=== PATIENT | male | born 1975 | race Caucasian/White ===

== ENCOUNTER 2020-04-25 04:16 | Inpatient (IN) | payer BC, OTHER ==
[~2020-04-25] VITALS: Ht 167 cm; Wt 79.2 kg
[2020-04-25] VITALS (8 sets, daily range): BP systolic 100–121; BP diastolic 66–93
--- OUTSIDE RECORDS SUMMARY | 2020-04-25 04:23 | XMS REPORT | Continuity of Care Document ---
Author Organization Unknown Address Unknown Phone Unavailable Allergies There is no data. Medications There is no data. Problems There is no data. Procedures There is no data. Results There is no data. Encounters ACCT No. Visit Date/Time Discharge Status Pt. Type Provider Facility Loc./Unit Complaint [id number] 04/18/2020 14:40:00 04/18/2020 23:59:5 9 [facility]
[2020-04-25] MEDS ORDERED: OSEL75CA15 (04:38)
[2020-04-25] MEDS ORDERED: ALBUTEROL (04:38)
[2020-04-25] MEDS ORDERED: LACTATED RINGERS 1,000 ML IV STA (05:05)
[2020-04-25 05:22] LABS: BASOPHILS % (AUTO) 0 % (0-10); EOSINOPHILS % (AUTO) 0 % (0-10); HEMATOCRIT 38 % (40-54); HEMOGLOBIN 12.6 G/DL (13.3-17.7); LYMPHOCYTES # (AUTO) 1.2 X 10^3 (1.0-4.0); LYMPHOCYTES % (AUTO) 10 % (12-44); MEAN CORPUSCULAR HEMOGLOBIN 24 PG (25-34); MEAN CORPUSCULAR HGB CONC 34 G/DL (32-36); MEAN CORPUSCULAR VOLUME 71 FL (80-99); MEAN PLATELET VOLUME 9.7 FL (7.4-10.4); MONOCYTES # (AUTO) 0.4 X 10^3 (0.0-1.0); MONOCYTES % (AUTO) 3 % (0-12); NEUTROPHILS # (AUTO) 10.3 X 10^3 (1.8-7.8); NEUTROPHILS % (AUTO) 86 % (42-75); PLATELET COUNT 333 10^3/uL (130-400); RED CELL DISTRIBUTION WIDTH 13.9 % (10.0-14.5); WHITE BLOOD COUNT 11.9 10^3/uL (4.3-11.0)
[2020-04-25 05:23] LABS: BILIRUBIN,URINE NEGATIVE (NEGATIVE); CLARITY,URINE CLEAR; COLOR,URINE YELLOW; GLUCOSE, URINE (UA) NEGATIVE (NEGATIVE); KETONES,URINE 1+ (NEGATIVE); LEUKOCYTE ESTERASE ,URINE NEGATIVE (NEGATIVE); NITRITE,URINE NEGATIVE (NEGATIVE); PROTEIN,URINE 2+ (NEGATIVE)
[2020-04-25 05:37] LABS: BACTERIA,URINE NEGATIVE /HPF; SQUAMOUS EPITHELIAL CELL,UR 0-2 /HPF
[2020-04-25 05:39] LABS: PROTHROMBIN TIME PATIENT 13.8 SEC (12.2-14.7)
--- NOTE | 2020-04-25 05:41 | ED Respiratory ---
General Chief Complaint: Respiratory Problems Stated Complaint: FEVER,SOB Nursing Triage Note: SOA X3 DAYS REPORTS TESTING POSITIVE FOR COVID 04/14/2020. REPORTS WORKS AT [employer]. Source: patient Exam Limitations: no limitations History of Present Illness Date Seen by Provider: Apr 25, 2020 Time Seen by Provider: 04:50 Initial Comments Patient with known history of COVID-19 infection as diagnosed on April 14 the [facility] presents with increasing shortness of air over the last 2 days. His also is COVID-19 positive and works at [employer]. Denies nausea, vomiting or diarrhea. Reports drinking okay but eating less. Overall doesn't feel well and is quite short of breath. He is still reporting fevers. Timing/Duration: getting worse, other (10 days) Severity: moderate Prior Episodes/Possible Cause: no prior episodes Modifying Factors: Worse With Activity; Improves With Oxygen, Improves With Rest Associated Symptoms: No chest pain/soreness; cough, fever/chills, muscle aches, nasal congestion, shortness of breath; No wheezing Allergies and Home Medications Allergies Coded Allergies: No Known Drug Allergies (Unverified , 12/18/15) Patient Home Medication List Home Medication List Reviewed: Yes Review of Systems Review of Systems Constitutional: see HPI, chills, fever EENTM: see HPI, nose congestion; No throat pain Respiratory: cough, short of breath Cardiovascular: no symptoms reported Gastrointestinal: No abdominal pain; loss of appetite; No nausea, No vomiting Genitourinary: no symptoms reported Musculoskeletal: no symptoms reported Skin: no symptoms reported All Other Systems Reviewed Negative Unless Noted: Yes Past Eyrmmis-Qrjdqa-Xuznfi Hx Past Med/Social Hx: Reviewed Nursing Past Med/Soc Hx Patient Social History Alcohol Use: Occasionally Uses Alcohol Beverage of Choice: Beer Recreational Drug Use: No Smoking Status: Never a Smoker 2nd Hand Smoke Exposure: No Recent Foreign Travel: No Contact w/Someone Who Travel: No Recent Infectious Disease Expo: No Recent Hopitalizations: No Physical Abuse: No Sexual Abuse: No Mistreated: No Fear: No Immunizations Up To Date Tetanus Booster (TDap): Unknown Seasonal Allergies Seasonal Allergies: No Past Medical History Surgeries: No Respiratory: No Cardiac: No Neurological: No Reproductive Disorders: No Sexually Transmitted Disease: No Genitourinary: No Gastrointestinal: No Musculoskeletal: No Endocrine: No HEENT: No Cancer: No Psychosocial: No Integumentary: No Blood Disorders: No Family Medical History Reviewed Nursing Family Hx No Pertinent Family Hx Physical Exam Vital Signs - First Documented 04/25/20 04:30 Temp 37.1 Pulse 96 Resp 20 B/P (MAP) 107/68 (81) Pulse Ox 97 O2 Delivery Nasal Cannula O2 Flow Rate 2.00 Capillary Refill : Less Than 3 Seconds Height: 5'7" Weight: 180lbs. oz. 81.380129zo; 28.00 BMI Method:Stated General Appearance: WD/WN, no apparent distress HEENT: PERRL/EOMI, pharynx normal Neck: full range of motion, supple Respiratory: No wheezing; other (course throughout) Cardiovascular: no murmur, tachycardia Gastrointestinal: non tender, soft Extremities: non-tender, normal inspection Neurologic/Psychiatric: alert, oriented x 3 Skin: normal color, warm/dry Focused Exam Lactate Level 04/25/20 05:00: Lactic Acid Level 0.91 Lactic Acid Level Laboratory Tests Test 04/25/20 05:00 Lactic Acid Level 0.91 MMOL/L (0.50-2.00) Progress/Results/Core Measures Suspected Sepsis Recent Fever Within 48 Hours: Yes Infection Criteria Present: Documented Infection New/Unexplained Altered Menta: No Sepsis Screen: Possible Sepsis Risk SIRS Temperature: Pulse: 96 Respiratory Rate: 20 Laboratory Tests 04/25/20 05:00: White Blood Count 11.9H Blood Pressure 107 /68 Mean: 81 04/25/20 05:00: Lactic Acid Level 0.91 Laboratory Tests 04/25/20 05:00: Creatinine 0.69, INR Comment 1.0, Platelet Count 333, Total Bilirubin 0.3 Results/Orders Lab Results Laboratory Tests Test 04/25/20 05:00 04/25/20 05:09 Range/Units White Blood Count 11.9 H 4.3-11.0 10^3/uL Red Blood Count 5.32 4.35-5.85 10^6/uL Hemoglobin 12.6 L 13.3-17.7 G/DL Hematocrit 38 L 40-54 % Mean Corpuscular Volume 71 L 80-99 FL Mean Corpuscular Hemoglobin 24 L 25-34 PG Mean Corpuscular Hemoglobin Concent 34 32-36 G/DL Red Cell Distribution Width 13.9 10.0-14.5 % Platelet Count 333 130-400 10^3/uL Mean Platelet Volume 9.7 7.4-10.4 FL Neutrophils (%) (Auto) 86 H 42-75 % Lymphocytes (%) (Auto) 10 L 12-44 % Monocytes (%) (Auto) 3 0-12 % Eosinophils (%) (Auto) 0 0-10 % Basophils (%) (Auto) 0 0-10 % Neutrophils # (Auto) 10.3 H 1.8-7.8 X 10^3 Lymphocytes # (Auto) 1.2 1.0-4.0 X 10^3 Monocytes # (Auto) 0.4 0.0-1.0 X 10^3 Eosinophils # (Auto) 0.0 0.0-0.3 10^3/uL Basophils # (Auto) 0.0 0.0-0.1 10^3/uL Prothrombin Time 13.8 12.2-14.7 SEC INR Comment 1.0 0.8-1.4 Activated Partial Thromboplast Time 35 24-35 SEC Sodium Level 136 135-145 MMOL/L Potassium Level 3.0 L 3.6-5.0 MMOL/L Chloride Level 103 98-107 MMOL/L Carbon Dioxide Level 21 21-32 MMOL/L Anion Gap 12 5-14 MMOL/L Blood Urea Nitrogen 14 7-18 MG/DL Creatinine 0.69 0.60-1.30 MG/DL Estimat Glomerular Filtration Rate > 60 BUN/Creatinine Ratio 20 Glucose Level 134 H 70-105 MG/DL Lactic Acid Level 0.91 0.50-2.00 MMOL/L Calcium Level 8.6 8.5-10.1 MG/DL Corrected Calcium 8.9 8.5-10.1 MG/DL Total Bilirubin 0.3 0.1-1.0 MG/DL Aspartate Amino Transf (AST/SGOT) 36 H 5-34 U/L Alanine Aminotransferase (ALT/SGPT) 36 0-55 U/L Alkaline Phosphatase 65 40-136 U/L Total Protein 7.4 6.4-8.2 GM/DL Albumin 3.6 3.2-4.5 GM/DL Urine Color YELLOW Urine Clarity CLEAR Urine pH 6.0 5-9 Urine Specific [place] 1.025 H 1.016-1.022 Urine Protein 2+ H NEGATIVE Urine Glucose (UA) NEGATIVE NEGATIVE Urine Ketones 1+ H NEGATIVE Urine Nitrite NEGATIVE NEGATIVE Urine Bilirubin NEGATIVE NEGATIVE Urine Urobilinogen 0.2 < = 1.0 MG/DL Urine Leukocyte Esterase NEGATIVE NEGATIVE Urine RBC (Auto) NEGATIVE NEGATIVE Urine RBC NONE /HPF Urine WBC NONE /HPF Urine Squamous Epithelial Cells 0-2 /HPF Urine Crystals NONE /LPF Urine Bacteria NEGATIVE /HPF Urine Casts NONE /LPF Urine Mucus MODERATE H /LPF Urine Culture Indicated NO My Orders Orders - CHELITA PORTILLO MD Cbc With Automated Diff (04/25/20 05:03) Comprehensive Metabolic Panel (04/25/20 05:03) Blood Culture (04/25/20 05:03) Sputum Culture (04/25/20 05:03) Urinalysis (04/25/20 05:03) Urine Culture (04/25/20 05:03) Protime With Inr (04/25/20 05:03) Partial Thromboplastin Time (04/25/20 05:03) Chest 1 View, Ap/Pa Only (04/25/20 05:03) Ed Iv/Invasive Line Start (04/25/20 05:03) Ed Iv/Invasive Line Start (04/25/20 05:03) Vital Signs Adult Sepsis Patie Q15M (04/25/20 05:03) O2 (04/25/20 05:03) Remove Rings In Anticipation O (04/25/20 05:03) Lactic Acid Analyzer (04/25/20 05:03) Lactated Ringers (Lr 1000 Ml Iv Solution (04/25/20 05:05) Vital Signs/I&O 04/25/20 04/25/20 04:30 04:30 Temp 37.1 Pulse 96 Resp 20 B/P (MAP) 107/68 (81) Pulse Ox 97 96 O2 Delivery Nasal Cannula Nasal Cannula O2 Flow Rate 2.00 2.00 Capillary Refill : Less Than 3 Seconds Blood Pressure Mean: 81 Progress Note : Progress Note Seen and evaluated. Initial O2 sat 88% on room air. Patient has no long history. He is COVID positive. I do have concerns about acute respiratory distress syndrome and COVID-19 positive patient's. We will initiate sepsis workup. 02 at 2 L via nasal cannula initiated and O2 saturations improved to 94%. LR 1 L bolus initiated. Monitor patient. 0535: I did discuss the case with Dr. Rosales and he has looked at the x-ray. Patient will need to be admitted to the ICU. Dr. Rosales will see the patient in consult. I will discuss the case with Dr. Bennett Vargas, patient's primary physician. Diagnostic Imaging Diagonstic Imaging: Xray Plain Films/CT/US/NM/MRI: chest Comments Bilateral peripheral pulmonary infiltrates concerning for COVID-19 infection. Departure Communication (Admissions) Time/Spoke to Admitting Phy: 06:22 Time/Spoke to Consulting Phy: 05:35 Impression Primary Impression: Bilateral pneumonia Qualified Codes: J18.9 - Pneumonia, unspecified organism Additional Impression: Coronavirus infection Disposition: ADMITTED INPATIENT Condition: Critical Admissions Decision to Admit Reason: Admit from ER (General) Decision to Admit/Date: Apr 25, 2020 Time/Decision to Admit Time: 05:35 CHELITA PORTILLO MD Apr 25, 2020 05:41
[2020-04-25 05:45] LABS: ALBUMIN 3.6 GM/DL (3.2-4.5); CHLORIDE 103 MMOL/L (98-107); SODIUM 136 MMOL/L (135-145)
[2020-04-25 05:46] LABS: CALCIUM 8.6 MG/DL (8.5-10.1)
[2020-04-25 05:48] LABS: GLUCOSE 134 MG/DL (70-105); TOTAL PROTEIN 7.4 GM/DL (6.4-8.2)
[2020-04-25 05:49] LABS: BILIRUBIN,TOTAL 0.3 MG/DL (0.1-1.0); CARBON DIOXIDE 21 MMOL/L (21-32)
[2020-04-25 05:51] LABS: ALKALINE PHOSPHATASE 65 U/L (40-136); CREATININE SERUM 0.69 MG/DL (0.60-1.30); GFR ESTIMATED > 60
[2020-04-25 05:52] LABS: BUN/CREATININE RATIO 20
[2020-04-25 05:54] LABS: ALANINE AMINOTRANSFERASE 36 U/L (0-55)
--- NOTE | 2020-04-25 06:10 | NUR ---
pt informed of anticipated wait time for admission d/t room needing cleaned. denies complaints/needs at this time.
--- NOTE | 2020-04-25 06:30 | NUR ---
icu unable to take report at this time.
--- NOTE | 2020-04-25 07:08 | Diagnostic Imaging Report ---
EXAM: CHEST 1 VIEW, AP/PA ONLY INDICATION: Shortness of air. COMPARISON: 12/18/2015. FINDINGS: Low lung volumes. Diffuse interstitial and airspace opacities throughout both lungs are new since the prior exam. No pleural effusion or pneumothorax. Normal heart size. No acute osseous findings. IMPRESSION: Diffuse bilateral pulmonary opacities are new since the prior exam. Dictated by: Dictated on workstation # [id number]
--- NOTE | 2020-04-25 07:23 | Pulmonary Consultation ---
History of Present Illness History of Present Illness Date Seen by Provider: Apr 25, 2020 Time Seen by Provider: 07:15 Date of Admission History of Present Illness 45yo who works at [employer] and tested positive for COVID 04/14/20 presented to ED secondary to worsening SOB over the last 2 days with his who is also positive for COVID and also works at [employer]. No prior episodes. Admits to fevers at home. Denies nausea, vomiting or diarrhea. Allergies and Home Medications Allergies Coded Allergies: No Known Drug Allergies (Unverified , 12/18/15) Past Bxwktcv-Kvmlhm-Pzqzdm Hx Past Med/Social Hx: Reviewed Nursing Past Med/Soc Hx Patient Social History Alcohol Use: Occasionally Uses Alcohol Beverage of Choice: Beer Recreational Drug Use: No Smoking Status: Never a Smoker 2nd Hand Smoke Exposure: No Recent Foreign Travel: No Contact w/Someone Who Travel: No Recent Infectious Disease Expo: No Recent Hopitalizations: No Physical Abuse: No Sexual Abuse: No Mistreated: No Fear: No Immunizations Up To Date Tetanus Booster (TDap): Unknown Seasonal Allergies Seasonal Allergies: No Past Medical History Surgeries: No Respiratory: No Cardiac: No Neurological: No Reproductive Disorders: No Sexually Transmitted Disease: No Genitourinary: No Gastrointestinal: No Musculoskeletal: No Endocrine: No HEENT: No Cancer: No Psychosocial: No Integumentary: No Blood Disorders: No Family Medical History Reviewed Nursing Family Hx No Pertinent Family Hx Review of Systems Time Seen by Provider: 07:24 Sepsis Event Evaluation Height, Weight, BMI Height: 5'7" Weight: 180lbs. oz. 81.922185jl; 28.00 BMI Method:Stated Exam Exam Vital Signs Date Time Temp Pulse Resp B/P (MAP) Pulse Ox O2 Delivery O2 Flow Rate FiO2 04/25/20 04:30 37.1 96 20 107/68 (81) 96 Nasal Cannula 2.00 04/25/20 04:30 97 Nasal Cannula 2.00 I & O 04/25/20 07:00 Intake Total 1000 ml Balance 1000 ml Height & Weight Height: 5'7" Weight: 180lbs. oz. 81.682144ag; 28.00 BMI Method:Stated General Appearance: Anxious, Mild Distress HEENT: PERRL/EOMI, Pharynx Normal Neck: Full Range of Motion, Normal Inspection, Non Tender Respiratory: Chest Non Tender, Crackles, Decreased Breath Sounds Cardiovascular: Regular Rate, Rhythm, No Edema, No Gallop Capillary Refill: Less Than 3 Seconds Gastrointestinal: non tender, soft Extremity: Normal Capillary Refill, Normal Inspection, No Pedal Edema Neurologic/Psychiatric: Alert, Oriented x3 Skin: Normal Color, Warm/Dry Lymphatic: No Adenopathy Results Lab Laboratory Tests 04/25/20 05:00 Assessment/Plan Assessment/Plan acute respiratory distress -Continue oxygen therapy -Monitor in ICU -Check Procalcitonin COVID positive -Monitor -Isolation Hypokalemia -replace LINDSEY SCHMITT DO Apr 25, 2020 07:23
[2020-04-25] MEDS ORDERED: ONDANSETRON 4 MG/2 ML (SDV) Z0FRAN IV PRN (07:45)
[2020-04-25] MEDS ORDERED: CATHETER FLUSH 10 ML SYR IV PRN (07:45)
[2020-04-25] MEDS: LACTATED RINGERS 1,000 ML IV SCH ×2 (09:03→17:46)
[2020-04-25] MEDS: POTASSIUM CL 10MEQ/50ML IVPB 50 ML IV SCH ×6 (09:03→12:25)
[2020-04-25 09:33] LABS: PHOSPHORUS 2.8 MG/DL (2.3-4.7)
[2020-04-25 09:36] LABS: MAGNESIUM 1.8 MG/DL (1.6-2.4)
--- NOTE | 2020-04-25 11:55 | NUR ---
Windmill Mechanic spoke with pt over the phone and he confirmed that he is Uatsdin. He does not request sacraments at this time and seems to be doing well.
[2020-04-25] MEDS ORDERED: ALBU90AE2 IN (13:51)
[2020-04-25] MEDS ORDERED: IBUP-2473 PO (13:51)
--- NOTE | 2020-04-25 13:52 | NUR ---
SPOKE WITH THE PT (I CALLED THE ROOM PHONE) AND WENT THRU THE EXT MED HISTORY TO COMPLETE THE MED REC ON 04-17-2020 PT WAS GIVEN TAMIFLU 75MG #10/5DS- HE HAS COMPLETED THIS THERAPY THEREFORE IT WAS NOT INCLUDED ON THE MED REC OTC MEDS: IBUPROFEN PRN
--- NOTE | 2020-04-25 17:32 | NUR ---
1710 PT TEMP NOTED TO BE 99.1 F WITH ORAL THERMOMETER, PT REQUESTING TYLENOL. DR ROSS NOTIFIED AND NEW ORDERS RECEIVED. SEE ORDER HX.
[2020-04-25] MEDS: ACETAMINOPHEN 325 MG TABLET PO PRN (20:59)
[2020-04-26] VITALS (7 sets, daily range): BP systolic 111–141; BP diastolic 66–98
[2020-04-26 03:12] LABS: BASOPHILS % (AUTO) 0 % (0-10); EOSINOPHILS # (AUTO) 0.1 10^3/uL (0.0-0.3); EOSINOPHILS % (AUTO) 1 % (0-10); HEMATOCRIT 36 % (40-54); LYMPHOCYTES # (AUTO) 1.7 X 10^3 (1.0-4.0); LYMPHOCYTES % (AUTO) 31 % (12-44); MEAN CORPUSCULAR HEMOGLOBIN 24 PG (25-34); MEAN CORPUSCULAR HGB CONC 33 G/DL (32-36); MEAN CORPUSCULAR VOLUME 72 FL (80-99); MEAN PLATELET VOLUME 9.5 FL (7.4-10.4); MONOCYTES # (AUTO) 0.5 X 10^3 (0.0-1.0); MONOCYTES % (AUTO) 9 % (0-12); NEUTROPHILS # (AUTO) 3.2 X 10^3 (1.8-7.8); NEUTROPHILS % (AUTO) 59 % (42-75); PLATELET COUNT 351 10^3/uL (130-400); WHITE BLOOD COUNT 5.4 10^3/uL (4.3-11.0)
[2020-04-26 03:31] LABS: BUN/CREATININE RATIO 14; CALCIUM 8.5 MG/DL (8.5-10.1); CARBON DIOXIDE 22 MMOL/L (21-32); CHLORIDE 104 MMOL/L (98-107); CREATININE SERUM 0.63 MG/DL (0.60-1.30); GFR ESTIMATED > 60; GLUCOSE 83 MG/DL (70-105); MAGNESIUM 1.9 MG/DL (1.6-2.4); PHOSPHORUS 2.7 MG/DL (2.3-4.7); POTASSIUM 4.1 MMOL/L (3.6-5.0); SODIUM 137 MMOL/L (135-145)
--- NOTE | 2020-04-26 04:51 | Pulmonary Progress Note ---
Subjective Time Seen by a Provider: 04:49 Subjective/Events-last exam Pt is still only requiring 2 liters of oxygen. Sepsis Event Evaluation Height, Weight, BMI Height: 5'7" Weight: 180lbs. oz. 81.636079fr; 28.00 BMI Method:Stated Focused Exam Lactate Level 04/25/20 05:00: Lactic Acid Level 0.91 Exam Exam Vital Signs Date Time Temp Pulse Resp B/P (MAP) Pulse Ox O2 Delivery O2 Flow Rate FiO2 04/26/20 01:00 58 04/26/20 00:00 36.8 66 30 124/86 (99) 94 Nasal Cannula 2.00 04/25/20 20:57 37.0 70 28 111/67 (82) 95 Nasal Cannula 2.00 04/25/20 20:00 94 Nasal Cannula 2.00 04/25/20 19:00 81 04/25/20 17:10 37.3 04/25/20 15:00 75 25 121/93 (102) 96 Nasal Cannula 2.00 04/25/20 14:00 75 31 117/83 (94) 96 Nasal Cannula 2.00 04/25/20 13:00 69 21 107/66 (80) 95 Nasal Cannula 2.00 04/25/20 12:39 69 04/25/20 12:19 36.9 04/25/20 12:14 96 Nasal Cannula 2.00 04/25/20 12:00 85 25 115/76 (89) 95 Nasal Cannula 2.00 04/25/20 11:00 65 21 102/66 (78) 98 Nasal Cannula 2.00 04/25/20 10:00 66 21 100/68 (79) 97 Nasal Cannula 2.00 04/25/20 09:20 98 Nasal Cannula 2.00 04/25/20 09:00 70 30 113/71 (85) 94 Nasal Cannula 2.00 04/25/20 08:53 77 04/25/20 08:45 37.1 88 20 102/67 (81) 96 Nasal Cannula 2.00 I & O 04/26/20 07:00 Intake Total 1300 ml Output Total 2325 ml Balance -1025 ml Height & Weight Height: 5'7" Weight: 180lbs. oz. 81.226321ot; 28.00 BMI Method:Stated General Appearance: Anxious, Mild Distress HEENT: PERRL/EOMI, Pharynx Normal Neck: Full Range of Motion, Normal Inspection, Non Tender Respiratory: Chest Non Tender, Crackles, Decreased Breath Sounds Cardiovascular: Regular Rate, Rhythm, No Edema, No Gallop Capillary Refill: Less Than 3 Seconds Gastrointestinal: non tender, soft Extremity: Normal Capillary Refill, Normal Inspection, No Pedal Edema Neurologic/Psychiatric: Alert, Oriented x3 Skin: Normal Color, Warm/Dry Lymphatic: No Adenopathy Results Lab Laboratory Tests 04/25/20 05:00 04/26/20 03:00 Assessment/Plan Assessment/Plan acute respiratory distress -Continue oxygen therapy -Procalcitonin - normal -No Abx needed at this time. COVID positive -Monitor -Isolation LINDSEY SCHMITT DO Apr 26, 2020 04:51
[2020-04-26] MEDS: LACTATED RINGERS 1,000 ML IV SCH (05:24)
[2020-04-26] MEDS ORDERED: KCL 20 MEQ TAB (K-DUR) PO SCH (06:00)
[2020-04-26] MEDS ORDERED: POTASSIUM CL 10MEQ/50ML IVPB 50 ML IV SCH (06:00)
[2020-04-26] MEDS ORDERED: MAGNESIUM 1 GM/100 ML IVPB 100 ML IV SCH (06:00)
--- NOTE | 2020-04-26 09:24 | NUR ---
PATIENT TRANSPORTED TO ROOM 431 VIA WHEELCHAIR BY MINE EXPLORATION ENGINEER. PATIENT ON 2L O2. DENIES ANY NEEDS AT THIS TIME. WILL CONTINUE TO MONITOR.
[2020-04-26] MEDS: ACETAMINOPHEN 325 MG TABLET PO PRN (20:33)
[2020-04-27] MEDS: ACETAMINOPHEN 325 MG TABLET PO PRN (05:43)
[2020-04-27 05:59] LABS: BASOPHILS % (AUTO) 0 % (0-10); EOSINOPHILS # (AUTO) 0.1 10^3/uL (0.0-0.3); EOSINOPHILS % (AUTO) 1 % (0-10); HEMATOCRIT 39 % (40-54); HEMOGLOBIN 12.7 G/DL (13.3-17.7); LYMPHOCYTES # (AUTO) 1.5 X 10^3 (1.0-4.0); LYMPHOCYTES % (AUTO) 24 % (12-44); MEAN CORPUSCULAR HEMOGLOBIN 24 PG (25-34); MEAN CORPUSCULAR HGB CONC 33 G/DL (32-36); MEAN CORPUSCULAR VOLUME 72 FL (80-99); MEAN PLATELET VOLUME 9.3 FL (7.4-10.4); MONOCYTES # (AUTO) 0.7 X 10^3 (0.0-1.0); MONOCYTES % (AUTO) 11 % (0-12); NEUTROPHILS # (AUTO) 4.1 X 10^3 (1.8-7.8); NEUTROPHILS % (AUTO) 64 % (42-75); PLATELET COUNT 439 10^3/uL (130-400); RED CELL DISTRIBUTION WIDTH 13.9 % (10.0-14.5); WHITE BLOOD COUNT 6.4 10^3/uL (4.3-11.0)
[2020-04-27 06:15] LABS: CHLORIDE 102 MMOL/L (98-107); POTASSIUM 3.8 MMOL/L (3.6-5.0); SODIUM 137 MMOL/L (135-145)
[2020-04-27 06:16] LABS: CALCIUM 8.9 MG/DL (8.5-10.1); GLUCOSE 86 MG/DL (70-105)
[2020-04-27 06:18] LABS: CARBON DIOXIDE 24 MMOL/L (21-32)
[2020-04-27 06:20] LABS: CREATININE SERUM 0.63 MG/DL (0.60-1.30); GFR ESTIMATED > 60; PHOSPHORUS 3.5 MG/DL (2.3-4.7)
[2020-04-27 06:21] LABS: BUN/CREATININE RATIO 19
[2020-04-27 06:23] LABS: MAGNESIUM 1.9 MG/DL (1.6-2.4)
[2020-04-27 08:18] VITALS: BP 113/67
--- NOTE | 2020-04-27 11:33 | Discharge Summary ---
Diagnosis/Chief Complaint Date of Admission Apr 25, 2020 at 06:23 Date of Discharge Discharge Date: Apr 27, 2020 Discharge Time: 11:28 Primary Care Discharge Summary Procedures/Consulations Dr Myah Mulligan Discharge Physical Exam Allergies: Coded Allergies: No Known Drug Allergies (Unverified , 12/18/15) Vitals & I&Os Vital Signs Date Time Temp Pulse Resp B/P (MAP) Pulse Ox O2 Delivery O2 Flow Rate FiO2 04/27/20 16:20 04/27/20 14:42 Nasal Cannula 2.00 04/27/20 13:07 91 04/27/20 12:46 70 16 04/26/20 23:22 36.7 General Appearance: No Apparent Distress, WD/WN Respiratory: Lungs Clear, No Respiratory Distress Cardiovascular: Regular Rate, Rhythm, No Murmur Gastrointestinal: Normal Bowel Sounds, Soft Neurologic/Psychiatric: Alert, Oriented x3 Hospital Course Pt was admitted due to hypoxia secondary to COVID19. He was admitted to the ICU due to complications from COVID19. He was mildly hypoxic and had a CXR consistent with diffuse bilateral opacities. He did very well and only requirement minimal oxygen. He was tested for home oxygen and was found to have a continuous oxygen need of 2lpm. This was arranged prior to DC. He was d ischarged home in stable condition to follow up with Dr Head regarding this hospital stay. Labs (last 24 hrs) Microbiology 04/25/20 Urine Culture - Final, Complete 3 or more isolates 04/25/20 Blood Culture - Preliminary, Resulted No growth Patient resulted labs reviewed. Pending Labs Discussion & Recommendations Discharge Planning: >30 minutes discharge planning Discharge Home Medications: Active Scripts Active Proair Digihaler (Albuterol Sulfate) 90 Mcg Aer.pw.bas 2 Puff IN Q6H PRN Reported Ibuprofen 200 Mg Tablet 400 Mg PO Q6H PRN Instructions to patient/family Please see electronic discharge instructions given to patient. Clinical Quality Measures DVT/VTE Risk/Contraindication: Risk Factor Score Per Nursin RFS Level Per Nursing on Admit: 1=Low/No VTE PPX Copy Copies To 1: DORIS HEAD MD, KATELYN M MD Apr 27, 2020 11:33
[2020-04-27] MEDS ORDERED: ALBU90AE2 IN (11:46)
--- NOTE | 2020-04-27 11:48 | Discharge Inst-Simple/Standard ---
Discharge Inst-Standard Discharge Medications New, Converted or Re-Newed RX: Transmitted to Pharmacy Patient Instructions/Follow Up Plan of Care/Instructions/FU: Please continue to take your medications as written. Please follow up with your primary care doctor, Dr Vargas, within the next week to follow up this hospital stay. Activity as Tolerated: Yes Discharge Diet: No Restrictions Return to The Hospital For: Shortness of breath, fever, low oxygen saturations, chest pain, if you feel you are getting worse. NICO ROSS MD Apr 27, 2020 11:48
[2020-04-27 12:46] VITALS: BP 131/77
--- NOTE | 2020-04-27 14:35 | NUR ---
DISCHARGE PLANNING: Patient will be discharging today to home with new Oxygen need. He chose [facility]. I spoke with [employer], they will deliver a portable tank. They will call the nurse, Antonieta and someone will go down and pick it up.
== END 2020-04-27 16:20 | disposition home or self-care (01) | DRG 177 ==
LOC: EDUNIT# 04:16 → ER 04:18 → ICU 06:23 → 4TH 04-26 09:32
PROVIDERS: ADMIT Family Medicine; ATTEND Family Medicine
DX: U07.1 COVID-19 (principal); J12.89 Other viral pneumonia; R06.03 Acute respiratory distress; E87.6 Hypokalemia
CPT/HCPCS: 36415; 71045; 80048; 80053; 81000; 82728; 83605; 83735; 84100; 84145; 85025; 85379; 85610; 85730; 87040; 87088; 94761; 96360

== ENCOUNTER → 2022-11-18 | Outpatient (CLI) | payer OTHER ==
[~2022-11-18] MED LIST: ALBU90AE2 IN; ALBUTEROL; IBUP-2473 PO; OSEL75CA15
--- NOTE | 2022-11-18 15:27 | Diagnostic Imaging Report ---
INDICATION: Heel pain. COMPARISON: None available. TECHNIQUE: Six radiographs of the bilateral feet dated 11/18/2022. FINDINGS: Left: Mild flattening and sclerosis of the 2nd metatarsal head. Flexion deformities of the 2nd through 5th toes are noted. No acute fracture or dislocation. No destructive osseous process. Small plantar calcaneal enthesophyte. Mild soft tissue swelling overlying the posterior aspect of the calcaneus. Mild scattered degenerative changes including involving the 1st MTP joint. No suspicious radiopaque foreign body. Right: No acute fracture or dislocation. No destructive osseous process. Flexion deformities of the 2nd through 5th toes are noted. Small posterior and tiny plantar calcaneal enthesophytes with minimal overlying soft tissue swelling involving the posterior aspect of the heel. The Lisfranc joint is well aligned. Mild scattered degenerative changes, greatest involving the 1st MTP joint. IMPRESSION: No acute fracture with mild degenerative changes present, greatest involving the 1st MTP joints bilaterally. Small bilateral calcaneal enthesophytes with associated minimal overlying soft tissue swelling about the bilateral heels. 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 Flexion deformities of the 2nd through 5th toes bilaterally. Dictated by: Dictated on workstation # [id number]
== END ==
LOC: RAD 10:02
PROVIDERS: ATTEND Family Medicine
DX: M19.071 Primary osteoarthritis, right ankle and foot (principal); M19.072 Primary osteoarthritis, left ankle and foot; M77.32 Calcaneal spur, left foot; M77.31 Calcaneal spur, right foot; M89.9 Disorder of bone, unspecified